=== PATIENT | female | born 1965 | race Caucasian/White ===

== ENCOUNTER 2017-12-11 08:27 | Observation (INO) | payer OTHER ==
[2017-12-11] MEDS ORDERED: Ondansetron INJ* 2 MG/ML VIAL IV ONE (08:41)
[2017-12-11] MEDS ORDERED: Morphine INJ* 4 MG/ML 1 ML CARPUJECT IV ONE (08:41)
[2017-12-11] MEDS ORDERED: NS 0.9% 1000 ML* 1,000 ML IV ONE (08:41)
[2017-12-11] MEDS ORDERED: Morphine INJ* 4 MG/ML 1 ML SYRINGE (NEW SYRINGE VERSION) ONE (08:46)
[2017-12-11 08:51] LABS: Hematocrit 44 % (35-47); Hemoglobin 14.6 g/dl (12.0-16.0); Mean Corpuscular HGB Conc 33 g/dl (31-36); Mean Corpuscular Hemoglobin 30 pg (27-31); Mean Corpuscular Volume 91 fL (80-97); Mean Platelet Volume 8 um3 (7.4-10.4); Platelet Count 343 10^3/ul (150-450); Red Blood Count 4.82 10^6/ul (4.0-5.4); Red Cell Distribution Width 14 % (10.5-15); White Blood Count 10.9 10^3/ul (3.5-10.8)
--- NOTE | 2017-12-11 09:14 | RAD ---
HISTORY: Chest pain COMPARISONS: December 14, 2014 VIEWS: 4: Frontal dual-energy and lateral views of the chest. FINDINGS: CARDIOMEDIASTINAL SILHOUETTE: The cardiomediastinal silhouette is normal. TERESA: The teresa are normal. PLEURA: The costophrenic angles are sharp. No pleural abnormalities are noted. LUNG PARENCHYMA: The lungs are clear. ABDOMEN: The upper abdomen is clear. There is no subphrenic gas. BONES AND SOFT TISSUES: No bone or soft tissue abnormalities are noted. OTHER: None. IMPRESSION: NO ACTIVE CARDIOPULMONARY DISEASE.
[2017-12-11 09:54] LABS: Monocytes % 8 % (0-13)
[2017-12-11] MEDS ORDERED: Aspirin Low Dose CHEW TAB* 81 MG PO ONE (13:02)
[2017-12-11] MEDS ORDERED: Ondansetron INJ* 2 MG/ML VIAL IV PRN (14:37)
[2017-12-11] MEDS ORDERED: Acetaminophen TAB* 325 MG PO PRN (14:37)
[2017-12-11] MEDS ORDERED: Morphine INJ* 2 MG/ML 1 ML CARPUJECT IV PRN (14:38)
[2017-12-11] MEDS ORDERED: NS 0.9% 1000 ML* 1,000 ML IV SCH (14:45)
[2017-12-11] MEDS ORDERED: Enoxaparin(*) 40 MG/0.4 ML SYR SUBCUT SCH (15:00)
[2017-12-11 15:56] LABS: Urine Appearance Clear; Urine Blood Negative (Negative); Urine Color Yellow; Urine Ketones Negative (Negative); Urine Protein Negative (Negative); Urine Specific Gravity 1.018 (1.010-1.030); Urine Urobilinogen Negative (Negative)
--- NOTE | 2017-12-11 18:56 | ED ---
Zhao Figueroa Angela, scribed for Dwayne Foster MD on 12/11/17 at 0831 . HPI Chest Pain - HPI Summary HPI Summary: This pt is a 52 y/o female presenting to [facility] via EMS c/o mid sternal chest pain since 05:00 today. Pt reports she usually gets chest pain due to achalasia , but this current pain is different. Pt states her pain is in the middle and where the esopagus is located. She additionally notes nausea and vomiting. Pt rates her pain 4/10 in severity. Pt notes this pain feels more like when she had gallstones. She has not taken any pain medications. The last time pt had an episode of achalasia chest pain was 2 weeks ago, and notes "not this bad." She states her typical chest pain resolves on its own. PMHx: heart murmur. PSHx: cholecystectomy. Pt has had surgeries for achalasia, the last one was 12-13 years ago. - History of Current Complaint Hx Obtained From: Patient Onset/Duration: Started Hours Ago, Still Present Timing: Lasting Hours Current Severity: Moderate Pain Intensity: 4 Pain Scale Used: 0-10 Numeric Chest Pain Location: Mid Sternal Chest Pain Radiates: No Alleviating Factor(s): Nothing Associated Signs and Symptoms: Positive: Chest Pain, Nausea, Other: - vomiting - Additional Pertinent History Primary Care Physician: BRAULIO - Allergy/Home Medications Allergies/Adverse Reactions: Allergies Allergy/AdvReac Type Severity Reaction Status Date / Time erythromycin base Allergy Hives Verified 12/11/17 14:42 Sulfa (Sulfonamide Allergy Hives Verified 12/11/17 14:42 Antibiotics) PMH/Surg Hx/FS Hx/Imm Hx Endocrine/Hematology History: Denies: Hx Diabetes Cardiovascular History: Denies: Hx Congestive Heart Failure, Hx Hypertension, Hx Pacemaker/ICD Respiratory History: Reports: Hx Asthma GI History: Reports: Other GI Disorders - Achalasia and esophagitis History: Denies: Hx Renal Disease Sensory History: Denies: Hx Hearing Aid Psychiatric History: Denies: Hx Panic Disorder - Cancer History Hx Chemotherapy: No Hx Radiation Therapy: No - Surgical History Surgery Procedure, Year, and Place: tonsils,2 esophageal myeotomies, cholecystectomy Hx Anesthesia Reactions: No - Immunization History Date of Tetanus Vaccine: Unk Date of Influenza Vaccine: None - Family History Family History: Father: floyd's esophagus. - Social History Alcohol Use: None Substance Use Type: Reports: None Hx Tobacco Use: No Smoking Status (MU): Never Smoked Tobacco Review of Systems Negative: Fever, Chills Positive: Chest Pain Positive: Vomiting, Nausea Skin: Negative Neurological: Negative All Other Systems Reviewed And Are Negative: Yes Physical Exam - Summary Physical Exam Summary: VITAL SIGNS: Reviewed. GENERAL: Patient is a well-developed and nourished female who is lying comfortable in the stretcher. Patient is not in any acute respiratory distress. HEAD AND FACE: No signs of trauma. No ecchymosis, hematomas or skull depressions. No sinus tenderness. EYES: PERRLA, EOMI x 2, No injected conjunctiva, no nystagmus. EARS: Hearing grossly intact. Ear canals and tympanic membranes are within normal limits. MOUTH: Oropharynx within normal limits. NECK: Supple, trachea is midline, no adenopathy, no JVD, no carotid bruit, no c- spine tenderness, neck with full ROM. CHEST: Symmetric. Reproducible chest pain in the retrosternum and epigastric areas. LUNGS: Clear to auscultation bilaterally. No wheezing or crackles. CVS: Regular rate and rhythm, S1 and S2 present, no murmurs or gallops appreciated. ABDOMEN: Soft, non-tender. No signs of distention. No rebound no guarding, and no masses palpated. Bowel sounds are normal. EXTREMITIES: FROM in all major joints, no edema, no cyanosis or clubbing. NEURO: Alert and oriented x 3. No acute neurological deficits. Speech is normal and follows commands. SKIN: Dry and warm Triage Information Reviewed: Yes Vital Signs On Initial Exam: Initial Vitals Temp Pulse Resp BP Pulse Ox 97.4 F 69 17 134/57 100 12/11/17 08:28 12/11/17 08:28 12/11/17 08:28 12/11/17 08:28 12/11/17 08:28 Vital Signs Reviewed: Yes Diagnostics - Vital Signs Vital Signs Temp Pulse Resp BP Pulse Ox 12/11/17 14:30 76 18 108/56 98 12/11/17 14:00 70 17 110/60 97 12/11/17 13:30 79 18 103/58 99 12/11/17 13:00 71 17 105/76 98 02/12/18 12:30 74 17 100/59 98 12/11/17 12:00 67 12 92/35 98 12/11/17 11:30 66 15 96/41 99 12/11/17 11:00 68 12 93/61 98 12/11/17 10:30 71 17 95/54 98 12/11/17 10:00 59 12 100/55 96 12/11/17 09:30 66 11 118/65 96 12/11/17 09:09 72 19 116/66 94 12/11/17 08:52 16 12/11/17 08:43 100 12/11/17 08:34 69 22 100 12/11/17 08:28 97.4 F 69 17 134/57 100 - Laboratory Lab Results: Lab Results 12/11/17 12/11/17 12/11/17 Range/Units 08:43 08:43 08:43 WBC (3.5-10.8) 10^3/ul RBC (4.0-5.4) 10^6/ul Hgb (12.0-16.0) g/dl Hct (35-47) % MCV (80-97) fL MCH (27-31) pg MCHC (31-36) g/dl RDW (10.5-15) % Plt Count (150-450) 10^3/ul MPV (7.4-10.4) um3 Neut % (Auto) Lymph % (Auto) Dent % (Auto) Eos % (Auto) Baso % (Auto) Absolute Neuts (auto) Absolute Lymphs (auto) Absolute Monos (auto) Absolute Eos (auto) Absolute Basos (auto) Absolute Nucleated RBC Neutrophils % (38-83) % Lymphocytes % (25-47) % Monocytes % (0-13) % Eosinophils % (0-6) % Basophils % (0-2) % Nucleated RBC % Abs Neuts (Manual) (1.5-7.7) 10^3/ul Abs Monocytes (Manual) (0-0.8) 10^3/ul Absolute Eos (Manual) (0-0.6) 10^3/ul Abs Basophils (Manual) (0-0.2) 10^3/ul Normal RBC Morphology (Normal) Hem Pathologist Commnt APTT 26.9 (26.0-36.3) seconds Sodium 137 (133-145) mmol/L Potassium 4.3 (3.5-5.0) mmol/L Chloride 103 (101-111) mmol/L Carbon Dioxide 26 (22-32) mmol/L Anion Gap 8 (2-11) mmol/L BUN 21 (6-24) mg/dL Creatinine 1.01 H (0.51-0.95) mg/dL Est GFR ( Amer) 74.6 (>60) Est GFR (Non-Af Amer) 58.0 (>60) BUN/Creatinine Ratio 20.8 H (8-20) Glucose 142 H (70-100) mg/dL Lactic Acid (0.5-2.0) mmol/L Calcium 9.8 (8.6-10.3) mg/dL Magnesium 2.0 (1.9-2.7) mg/dL Total Bilirubin 0.40 (0.2-1.0) mg/dL AST 19 (13-39) U/L ALT 16 (7-52) U/L Alkaline Phosphatase 52 (34-104) U/L Total Creatine Kinase 142 (10-223) U/L CK-MB (CK-2) 3.2 (0.6-6.3) ng/mL Troponin I 0.01 (<0.04) ng/mL B-Natriuretic Peptide 38 ( - 100) pg/mL Total Protein 7.4 (6.4-8.9) g/dL Albumin 4.2 (3.2-5.2) g/dL Globulin 3.2 (2-4) g/dL Albumin/Globulin Ratio 1.3 (1-3) TSH 1.59 (0.34-5.60) mcIU/mL Urine Color Urine Appearance Urine pH (5-9) Ur Specific Underwood (1.010-1.030) Urine Protein (Negative) Urine Ketones (Negative) Urine Blood (Negative) Urine Nitrate (Negative) Urine Bilirubin (Negative) Urine Urobilinogen (Negative) Ur Leukocyte Esterase (Negative) Urine Glucose (Negative) Urine Ascorbic Acid (Negative) 12/11/17 12/11/17 12/11/17 Range/Units 08:43 08:43 11:33 WBC 10.9 H (3.5-10.8) 10^3/ul RBC 4.82 (4.0-5.4) 10^6/ul Hgb 14.6 (12.0-16.0) g/dl Hct 44 (35-47) % MCV 91 (80-97) fL MCH 30 (27-31) pg MCHC 33 (31-36) g/dl RDW 14 (10.5-15) % Plt Count 343 (150-450) 10^3/ul MPV 8 (7.4-10.4) um3 Neut % (Auto) Not Reportable Lymph % (Auto) Not Reportable Dent % (Auto) Not Reportable Eos % (Auto) Not Reportable Baso % (Auto) Not Reportable Absolute Neuts (auto) Not Reportable Absolute Lymphs (auto) Not Reportable Absolute Monos (auto) Not Reportable Absolute Eos (auto) Not Reportable Absolute Basos (auto) Not Reportable Absolute Nucleated RBC Not Reportable Neutrophils % 81 (38-83) % Lymphocytes % 11 L (25-47) % Monocytes % 8 (0-13) % Eosinophils % 0 (0-6) % Basophils % 0 (0-2) % Nucleated RBC % Not Reportable Abs Neuts (Manual) 8.8 H (1.5-7.7) 10^3/ul Abs Monocytes (Manual) 0.9 H (0-0.8) 10^3/ul Absolute Eos (Manual) 0 (0-0.6) 10^3/ul Abs Basophils (Manual) 0 (0-0.2) 10^3/ul Normal RBC Morphology Normal (Normal) Hem Pathologist Commnt APTT (26.0-36.3) seconds Sodium (133-145) mmol/L Potassium (3.5-5.0) mmol/L Chloride (101-111) mmol/L Carbon Dioxide (22-32) mmol/L Anion Gap (2-11) mmol/L BUN (6-24) mg/dL Creatinine (0.51-0.95) mg/dL Est GFR ( Amer) (>60) Est GFR (Non-Af Amer) (>60) BUN/Creatinine Ratio (8-20) Glucose (70-100) mg/dL Lactic Acid 2.7 H* (0.5-2.0) mmol/L Calcium (8.6-10.3) mg/dL Magnesium (1.9-2.7) mg/dL Total Bilirubin (0.2-1.0) mg/dL AST (13-39) U/L ALT (7-52) U/L Alkaline Phosphatase (34-104) U/L Total Creatine Kinase (10-223) U/L CK-MB (CK-2) (0.6-6.3) ng/mL Troponin I 0.07 H* (<0.04) ng/mL B-Natriuretic Peptide ( - 100) pg/mL Total Protein (6.4-8.9) g/dL Albumin (3.2-5.2) g/dL Globulin (2-4) g/dL Albumin/Globulin Ratio (1-3) TSH (0.34-5.60) mcIU/mL Urine Color Urine Appearance Urine pH (5-9) Ur Specific Underwood (1.010-1.030) Urine Protein (Negative) Urine Ketones (Negative) Urine Blood (Negative) Urine Nitrate (Negative) Urine Bilirubin (Negative) Urine Urobilinogen (Negative) Ur Leukocyte Esterase (Negative) Urine Glucose (Negative) Urine Ascorbic Acid (Negative) 12/11/17 12/11/17 Range/Units 13:11 13:30 WBC (3.5-10.8) 10^3/ul RBC (4.0-5.4) 10^6/ul Hgb (12.0-16.0) g/dl Hct (35-47) % MCV (80-97) fL MCH (27-31) pg MCHC (31-36) g/dl RDW (10.5-15) % Plt Count (150-450) 10^3/ul MPV (7.4-10.4) um3 Neut % (Auto) Lymph % (Auto) Dent % (Auto) Eos % (Auto) Baso % (Auto) Absolute Neuts (auto) Absolute Lymphs (auto) Absolute Monos (auto) Absolute Eos (auto) Absolute Basos (auto) Absolute Nucleated RBC Neutrophils % (38-83) % Lymphocytes % (25-47) % Monocytes % (0-13) % Eosinophils % (0-6) % Basophils % (0-2) % Nucleated RBC % Abs Neuts (Manual) (1.5-7.7) 10^3/ul Abs Monocytes (Manual) (0-0.8) 10^3/ul Absolute Eos (Manual) (0-0.6) 10^3/ul Abs Basophils (Manual) (0-0.2) 10^3/ul Normal RBC Morphology (Normal) Hem Pathologist Commnt APTT (26.0-36.3) seconds Sodium (133-145) mmol/L Potassium (3.5-5.0) mmol/L Chloride (101-111) mmol/L Carbon Dioxide (22-32) mmol/L Anion Gap (2-11) mmol/L BUN (6-24) mg/dL Creatinine (0.51-0.95) mg/dL Est GFR ( Amer) (>60) Est GFR (Non-Af Amer) (>60) BUN/Creatinine Ratio (8-20) Glucose (70-100) mg/dL Lactic Acid (0.5-2.0) mmol/L Calcium (8.6-10.3) mg/dL Magnesium (1.9-2.7) mg/dL Total Bilirubin (0.2-1.0) mg/dL AST (13-39) U/L ALT (7-52) U/L Alkaline Phosphatase (34-104) U/L Total Creatine Kinase (10-223) U/L CK-MB (CK-2) (0.6-6.3) ng/mL Troponin I 0.09 H* (<0.04) ng/mL B-Natriuretic Peptide ( - 100) pg/mL Total Protein (6.4-8.9) g/dL Albumin (3.2-5.2) g/dL Globulin (2-4) g/dL Albumin/Globulin Ratio (1-3) TSH (0.34-5.60) mcIU/mL Urine Color Yellow Urine Appearance Clear Urine pH 7.0 (5-9) Ur Specific Underwood 1.018 (1.010-1.030) Urine Protein Negative (Negative) Urine Ketones Negative (Negative) Urine Blood Negative (Negative) Urine Nitrate Negative (Negative) Urine Bilirubin Negative (Negative) Urine Urobilinogen Negative (Negative) Ur Leukocyte Esterase Negative (Negative) Urine Glucose Negative (Negative) Urine Ascorbic Acid * H (Negative) Result Diagrams: 12/11/17 08:43 12/11/17 08:43 Lab Statement: Any lab studies that have been ordered have been reviewed, and results considered in the medical decision making process. - Radiology Chest XR Xray Interpretation: No Acute Changes - IMPRESSION: No active cardiopulmonary disease. Dr. Foster has reviewed this radiology report. Radiology Interpretation Completed By: Radiologist - EKG 08:29 Cardiac Rate: NL EKG Rhythm: Sinus Rhythm - at 69 bpm EKG Interpretation: No ST elevation Chest Pain Course/Dx - Course Assessment/Plan: This pt is a 52 y/o female presenting to [facility] via EMS c/o mid sternal chest pain since 05:00 today. Pt reports she usually gets chest pain due to achalasia, but this current pain is different. Pt states her pain is in the middle and where the esopagus is located. She additionally notes nausea and vomiting. Pt rates her pain 4/10 in severity. Pt notes this pain feels more like when she had gallstones. She has not taken any pain medications. The last time pt had an episode of achalasia chest pain was 2 weeks ago, and notes "not this bad." She states her typical chest pain resolves on its own. PMHx: heart murmur. PSHx: cholecystectomy. Pt has had surgeries for achalasia, the last one was 12-13 years ago. Test results without significant abnormalities except for creatinine of 1.01, glucose 142, lactic acid is 2.7, troponin 1 is 0.01 and 4 hours later, second troponin increased and is 0.07. The pt was given aspirin and at this point I discussed the case with Dr. Monk, hospitalist, who accepted the pt for admission. Pt is hemodynamically stable, alert and oriented x3. - Chest Pain Differential Diagnosis/HQI/PQRI: Acute TX, ACS, Angina, CHF, Chest Wall, GI Disease, Lower Respiratory Infection - Diagnoses Provider Diagnoses: Chest pain, rule out ACS - Provider Notifications Discussed Care Of Patient With: Canelo Monk Time Discussed With Above Provider: 12:55 Instructed by Provider To: Other - I discussed pt care with Dr. Monk, hospitalist, who has agreed to admit the pt. Discharge - Discharge Plan Condition: Stable Disposition: ADMITTED TO [facility] The documentation as recorded by the Zhao bryant Angela accurately reflects the service I personally performed and the decisions made by , Dwayne Foster MD.
--- NOTE | 2017-12-11 20:33 | HP ---
CC: Diann Ayoub NP * ADMISSION HISTORY AND PHYSICAL: DATE OF ADMISSION: 12/11/17 PRIMARY CARE PROVIDER: Diann Ayoub NP HEALTHCARE PROXY: . CODE STATUS: Full. SOURCE OF INFORMATION: History obtained from interview with patient, review of past medical records. RELIABILITY: Good. CHIEF COMPLAINT: Chest pain, nausea, vomiting. HISTORY OF PRESENT ILLNESS: This is a 52-year-old female with past medical history including severe achalasia, status post Heller myotomy twice, last 2010 , and numerous balloon dilatations, last before 2010, whose last hospital stay was in March of 2016 after presenting with chest pain thought secondary to achalasia, found with increasing troponins at that time peaked at 0.13, underwent a stress echo with no evidence of ischemia, has been well. Does have chest pain approximately 1 time a week, not related to exertion, consistent with her achalasia woke up this morning at 5 a.m. with nausea, vomiting, and worsening of chest pain that felt "different than normal" and that was associated with emesis and the pain also felt more severe. She continued to be nauseous and the more she vomited, the worse her pain became until she ultimately presented to the emergency room, received pain medications and the pain abated. The patient noted diaphoresis in the sitting of the chest pain, nausea, and vomiting, but denied any shortness of breath, lightheadedness, loss of consciousness. She similarly denied any recent cough, fevers, chills, diarrhea, constipation, but did note that her 6-year-old son has been home for several days with a fever. She described the pain as sharp, midsternal radiating to her back similar to previous episodes. The patient's exercise tolerance is unlimited. She attends aerobic exercise class twice per week that last for approximately 45 minutes without associated chest pain. She is on no medications and has no changes to her medications. In the emergency room, she was found with an elevated troponin and the hospitalist service was consulted for admission. After last admission, the patient was recommended to seek additional care at a tertiary or quaternary care center, potentially one with an achalasia center for further evaluation. She had previously been recommended for an esophagectomy, which she declined. The patient has not been to one of these centers secondary to insurance reasons and difficulty with referral. PAST MEDICAL HISTORY: Includes achalasia, status post Heller myotomy twice, last in 2010; numerous balloon dilatations; asthma; cholecystectomy. MEDICATIONS: None. ALLERGIES: SULFA and ERYTHROMYCIN. FAMILY HISTORY: Father had Jeffrey's esophagus. No history of CVAs, CAD. SOCIAL HISTORY: No alcohol, tobacco or illicits. REVIEW OF SYSTEMS: As per HPI including chest pain, nausea, vomiting, diaphoresis, sick contact. Otherwise, all other systems negative. PHYSICAL EXAMINATION GENERAL: Sitting up in bed, interactive, pleasant, no apparent distress. VITAL SIGNS: When seen by this author, 110/60, heart rate 77, respiratory rate 17, 98% on room air. T-max in the emergency room is 97.4. HEENT: Oropharynx is clear. She has moist mucous membranes. Sclerae anicteric. NECK: Non-elevated JVD. LUNGS: Clear to auscultation. She has no tenderness to palpation over her chest wall. HEART: Regular rate and rhythm. No murmurs, rubs or gallops. ABDOMEN: Soft, nontender, nondistended. EXTREMITIES: Warm, well perfused without clubbing, cyanosis or edema. NEUROLOGIC: She is alert and oriented x3. Cranial nerves II through XII are intact. She has no apparent anxiety, agitation or depression. PERTINENT LABORATORY DATA: Include lactic acid 2.7 in the setting of nausea and vomiting. Troponin I 0.01 on presentation, now 0.09. BNP 21, creatinine 1.0. White blood cell count 10.9. EKG: Normal sinus rhythm, ventricular rate of 88, normal limit axis, normal limit interval. No ST or T-wave changes. Chest x-ray: Impression: No active cardiopulmonary disease. ASSESSMENT AND PLAN: This is a 52-year-old female with past medical history of achalasia and asthma presenting with chest pain associated with nausea, vomiting and now elevated troponin similar to an episode in 2016. 1. Chest pain: The patient does note that this pain is different than chest pain she still is noted to be low risk. We will check lipids in the morning. Continue to trend troponins, place her on telemetry and monitor. Give the patient an aspirin and continue to follow troponins and if troponins are elevated, consider heparin. If troponins trend down, we will not pursue a stress test at this time. I have ordered a transthoracic echocardiogram to be followed tomorrow. 2. Sick contacts, son with a flu: These symptoms are different than her previous associated with nausea, vomiting. Her son had a fever in the setting of flu endemic and her different presentation of chest pain, we will check the patient for influenza as well. 3. DVT prophylaxis: Lovenox. [id number]/[facility] #: [id number] LOLY
[2017-12-12 05:53] LABS: EGFR Non-African American 64.6 (>60)
[2017-12-12] MEDS ORDERED: Aspirin EC Low Dose* 81 MG TAB.EC PO SCH (09:00)
[2017-12-12 11:24] VITALS: BP 103/57
--- NOTE | 2017-12-12 11:39 | ECHO ---
Patient: OTTO MORA [facility] Rec#: [id number] : 1965 Date: 12/12/2017 Age: 52y Height: 152.4 cm / 60.0 in Weight: 79.38 kg / 175.0 lbs Sex: F BSA: 1.76 Room#: 443 Admit Date#: 12/11/2017 Type: Inpatient Referring: Canelo Monk MD Reading: Joe Pineda MD Instructor Dramatic Arts: May Grant RDCS,RDMS CC: Kate Saravia MD Transthoracic Echocardiogram Indication: CP BP: 101/54 HR: 64 Rhythm: NSR Findings History: Murmur, asthma Technical Comments: The study quality is good. Left Ventricle: The left ventricular chamber size is normal. There is no left ventricular hypertrophy. Global left ventricular wall motion and contractility are within normal limits. There is normal left ventricular systolic function. The estimated ejection fraction is 55-60%. Normal left ventricular diastolic filling is observed. Left Atrium: The left atrial chamber size is normal. Right Ventricle: The right ventricular chamber size and systolic function are within normal limits. Right Atrium: The right atrial cavity size is normal. Aortic Valve: The aortic valve is trileaflet. The aortic valve leaflets are mildly thickened. Systolic excursion of the aortic valve is normal. There is no evidence of aortic regurgitation. There is no evidence of aortic stenosis. Mitral Valve: The mitral valve leaflets are mildly thickened. Mitral valve leaflet mobility appears normal. There is a trace of mitral regurgitation. There is no evidence of mitral stenosis. Tricuspid Valve: The tricuspid valve leaflets are normal. There is trace tricuspid regurgitation. No pulmonary hypertension is noted. Pulmonic Valve: The pulmonic valve appears normal. There is no evidence of pulmonic regurgitation. Pericardium: There is no significant pericardial effusion. Aorta: The aortic root appears normal. There is no dilatation of the aortic arch. Pulmonary Artery: The main pulmonary artery appears normal. Venous: The inferior vena cava is dilated. There is less than 50% respiratory change in the inferior vena cava dimension. Conclusions There is normal left ventricular systolic function. The estimated ejection fraction is 55-60%. There is a trace of mitral regurgitation. There is trace tricuspid regurgitation. No pulmonary hypertension is noted. No reports of prior transthoracic echocardiograms offered for comparison. Measurements Name Value Normal Range RVIDd (AP) 2D 2.6 cm (0.9 - 2.6) RVDdMajor (2D) 2.7 cm (2.2 - 4.4) RAd ISD 4CH 4.5 cm (3.4 - 4.9) RA (A4C)W 3.1 cm (2.9 - 4.6) IVSd (2D) 0.9 cm (0.6 - 1) LVPWd (2D) 0.8 cm (0.6 - 1) LVIDd (2D) 4.7 cm (3.6 - 5.4) LVIDs (2D) 3.6 cm - LV FS (2D) 24 % (25 - 45) Aortic Annulus 1.8 cm (1.4 - 2.6) Ao root diameter (2D) 2.3 cm (2.1 - 3.5) Ascending Ao 2.2 cm (2.1 - 3.4) Aortic arch 2.4 cm (1.8 - 3.4) LA dimension (AP) 2D 3.4 cm (2.3 - 3.8) LAd ISD 4CH 5.4 cm (2.9 - 5.3) LA ISD 4CH W 4.5 cm (2.5 - 4.5) Name Value Normal Range LA ESV SP 4CH (A/L) 59.54 ml - LA ESV SP 2CH (A/L) 48.23 ml - LA ESV BP (A/L) 54.76 ml - LA ESV BP (A/L) index 31 ml/m2 - LA ESV SP 4CH (MOD) 55.12 ml - LA ESV SP 2CH (MOD) 45.67 ml - LV EDV SP 4CH (MOD) 72.65 ml - LV ESV SP 4CH (MOD) 31.17 ml - EF SP 4CH (MOD) 57.09 % - Name Value Normal Range MV E-wave Vmax 1 m/sec - MV deceleration time 193 msec - MV A-wave Vmax 0.7 m/sec - MV E:A ratio 4 ratio - P. vein S-wave Vmax 0.5 m/sec - P. vein D-wave Vmax 0.3 m/sec - P. vein S:D Vmax ratio 1.5 ratio - P. vein A-wave duration 114 msec - LV septal e' Vmax 0.11 m/sec - LV lateral e' Vmax 0.1 m/sec - LV E:e' septal ratio 9 ratio - LV E:e' lateral ratio 10 ratio - Name Value Normal Range AV Vmax 1.6 m/sec - AV VTI 33.5 cm - AV peak gradient 10 mmHg - AV mean gradient 5.9 mmHg - LVOT Vmax 1.1 m/sec - LVOT VTI 23.2 cm - LVOT peak gradient 5 mmHg - LVOT mean gradient 2.5 mmHg - MATEO Vmax 0.9 m/sec - Name Value Normal Range TR Vmax 1.8 m/sec - TR peak gradient 13 mmHg - RAP 3 mmHg - RVSP 16 mmHg - IVC diameter 2.5 cm - Name Value Normal Range PV Vmax 0.8 m/sec - PV peak gradient 2.6 mmHg -
--- NOTE | 2017-12-13 17:29 | DS ---
CC: Diann Ayoub NP. * DISCHARGE SUMMARY: DATE OF ADMISSION: 12/11/17. DATE OF DISCHARGE: 12/12/17. PRIMARY CARE PROVIDER: Diann Ayoub NP. PRIMARY DIAGNOSES: 1. Chest pain. 2. Achalasia. SECONDARY DIAGNOSIS: Include asthma, mild, intermittent. MEDICATIONS ON DISCHARGE: Include aspirin 81 mg daily, new addition. PERTINENT LABORATORY DATA: Troponin-I peaked at 0.11. Total cholesterol 167, LDL 102, HDL 43. PERTINENT IMAGING: Transthoracic echocardiogram, impression: Normal left ventricular systolic function. EF 55% to 60%, trace MR, trace TR, no pulmonary hypertension. No comparison. HISTORY OF PRESENT ILLNESS AND HOSPITAL COURSE: This is a 52-year-old female with past medical history as outlined in the history of present illness on the day of admission including achalasia with multiple interventions and a previous presentation in March 2016 with chest pain, found with an elevated troponin at 0.13, underwent a stress test at that time and that was read to be low risk. This time presenting similarly with chest pain, nausea, vomiting, again found to have an elevated troponin, again peaked at 0.11. She had no EKG evidence suspicious of cardiac ischemia and her echocardiogram did not indicate any damage. She was discharged the next day without any chest pain. Her nausea and vomiting had completely abated. DISCHARGE INSTRUCTIONS: At followup, please: 1. Discuss utility of repeat stress test. I did not feel it was clinically warranted at this time. 2. Continue to discuss referral to [facility]. Reasons to return to the hospital included, but are not limited to, recurrent or worsening of symptoms, chest pain, shortness of breath, nausea, vomiting, lightheadedness, loss of consciousness, bleeding from any source, inability to obtain or tolerate medications were discussed at length with the patient. She acknowledged understanding. [id number]/[facility] #: [id number] LOLY
== END 2017-12-12 13:45 | disposition home or self-care (01) ==
LOC: ED 08:27 → MEDTELE 14:38
PROVIDERS: ADMIT Internal Medicine; ATTEND Internal Medicine
DX: R07.9 Chest pain, unspecified (principal); R11.2 Nausea with vomiting, unspecified; K22.0 Achalasia of cardia; Z87.09 Personal history of other diseases of the respiratory system; Z90.49 Acquired absence of other specified parts of digestive tract; Z98.890 Other specified postprocedural states
CPT/HCPCS: 36415; 71046; 80048; 80053; 80061; 81003; 82550; 82553; 83605; 83735; 83880; 84443; 84484; 85025; 85060; 85730; 87502; 93005; 93306; 96374; 96375; 99284; A9270-GY; G0378; J2270; J2405

== ENCOUNTER 2018-04-13 11:15 | Emergency (ER) | payer OTHER ==
[2018-04-13] MEDS ORDERED: Lidocaine 2% VISCOUS* 15 ML UDC PO ONE (11:39)
[2018-04-13] MEDS ORDERED: Al Hydrox/Mg Hydrox/Simet LIQ* 30 ML UDC PO ONE (11:39)
[2018-04-13] MEDS ORDERED: Famotidine TAB* 20 MG PO ONE (11:39)
[2018-04-13] MEDS ORDERED: HYDROmorphone INJ* 2 MG/ML CARPUJECT SYRINGE IV SLOW PU ONE (11:39)
--- NOTE | 2018-04-13 13:21 | ED ---
Melvin Figueroa Stephanie, scribed for Natalio Goodman MD on 04/13/18 at 1145 . Abdominal Pain/Female - HPI Summary HPI Summary: The pt is a 52 y/o F presenting to the ED with c/o abd pain that began at 08:30 today. Symptoms include vomiting (for 2 hours). She describes her pain as being over her xiphoid. She reports hx of achalasia. She is followed by GI specialist at [facility]. - History of Current Complaint Chief Complaint: EDAbdPain Stated Complaint: ABD PAIN,DIFF BREATHING Time Seen by Provider: 04/13/18 11:25 Hx Obtained From: Patient ?: No Onset/Duration: Gradual Onset, Lasting Hours, Still Present Timing: Constant Severity Currently: Moderate Pain Intensity: 6 Pain Scale Used: 0-10 Numeric Location: Diffuse Radiates: No Aggravating Factor(s): Food Alleviating Factor(s): Nothing Associated Signs and Symptoms: Positive: Nausea, Vomiting Allergies/Adverse Reactions: Allergies Allergy/AdvReac Type Severity Reaction Status Date / Time erythromycin base Allergy Hives Verified 04/13/18 11:22 Sulfa (Sulfonamide Allergy Hives Verified 04/13/18 11:22 Antibiotics) Home Medications: Home Medications NK [No Home Medications Reported] 04/13/18 [History Confirmed 04/13/18] PMH/Surg Hx/FS Hx/Imm Hx Endocrine/Hematology History: Denies: Hx Diabetes Cardiovascular History: Denies: Hx Congestive Heart Failure, Hx Hypertension, Hx Pacemaker/ICD Respiratory History: Reports: Hx Asthma GI History: Reports: Other GI Disorders - Achalasia and esophagitis History: Denies: Hx Renal Disease Sensory History: Denies: Hx Contacts or Glasses, Hx Hearing Aid Opthamlomology History: Denies: Hx Contacts or Glasses Psychiatric History: Denies: Hx Panic Disorder - Cancer History Hx Chemotherapy: No Hx Radiation Therapy: No - Surgical History Surgery Procedure, Year, and Place: tonsils,2 esophageal myeotomies, cholecystectomy Hx Anesthesia Reactions: No - Immunization History Date of Tetanus Vaccine: Unk Date of Influenza Vaccine: None Infectious Disease History: No Infectious Disease History: Denies: Traveled Outside the [place] in Last 30 Days - Family History Known Family History: Negative: Renal Disease Family History: Father: floyd's esophagus. - Social History Occupation: Unemployed Lives: With Family Alcohol Use: None Hx Substance Use: No Substance Use Type: Reports: None Hx Tobacco Use: No Smoking Status (MU): Never Smoked Tobacco Have You Smoked in the Last Year: No Review of Systems Negative: Fever Positive: Abdominal Pain, Vomiting, Nausea Negative: Slurred Speech All Other Systems Reviewed And Are Negative: Yes Physical Exam - Summary Physical Exam Summary: Appearance: Well appearing, no pain distress, tearful and upset, no palpable pain Skin: warm, dry, reflects adequate perfusion Head/face: normal Eyes: EOMI, TALIA ENT: normal Neck: supple, non-tender Respiratory: CTA, breath sounds present Cardiovascular: RRR, pulses symmetrical Abdomen: non-tender, soft Bowel Sounds: present Musculoskeletal: normal, strength/ROM intact Neuro: normal, sensory motor intact, A&Ox3 Triage Information Reviewed: Yes Vital Signs On Initial Exam: Initial Vitals Temp Pulse Resp BP Pulse Ox 98 F 71 22 144/64 100 04/13/18 11:22 04/13/18 11:22 04/13/18 11:22 04/13/18 11:22 04/13/18 11:22 Vital Signs Reviewed: Yes Diagnostics - Vital Signs Vital Signs Temp Pulse Resp BP Pulse Ox 04/13/18 11:22 98 F 71 22 144/64 100 - Laboratory Lab Statement: Any lab studies that have been ordered have been reviewed, and results considered in the medical decision making process. - EKG 11:36 Cardiac Rate: NL EKG Rhythm: Sinus Rhythm - 67 BPM EKG Interpretation: nml axis, intervals, and ST segments Re-Evaluation - Re-Evaluation First Eval Re-Evaluation Time: 12:38 Change: Improved - The pt states she feels better at this time. Abdominal Pain Fem Course/Dx - Course Course Of Treatment: Patient with a history of achalasia with recurring subxiphoid discomfort. She was given GI medications along with a dose of opiate pain medication with relief. She states that they have discussed possible operative intervention but that she was not quite ready for. She will follow-up with her GI doctor at [facility]. Discharged in good condition. normal. - Diagnoses Differential Diagnosis: Positive: Other - Fluid bolus, GERD/gastritis, chest wall pain, cardiac chest pain Provider Diagnoses: Achalasia, Chronic chest pain Discharge - Sign-Out/Discharge Documenting (check all that apply): Discharge/Admit/Transfer - Discharge - Discharge Plan Condition: Stable Disposition: HOME Referrals: Kate Saravia MD [Primary Care Provider] - Additional Instructions: Follow-up with a call today to your GI doctor Dr. Norris. Return if worse, new symptoms or other concerns as discussed. - Billing Disposition and Condition Condition: STABLE Disposition: Home The documentation as recorded by the Melvin bryant Stephanie accurately reflects the service I personally performed and the decisions made by me, Natalio Goodman MD.
[2018-04-13 14:06] VITALS: BP 106/68
== END 2018-04-13 14:04 | disposition home or self-care (01) ==
LOC: ED 11:15
DX: K22.0 Achalasia of cardia (principal); R07.9 Chest pain, unspecified; G89.29 Other chronic pain; Z90.49 Acquired absence of other specified parts of digestive tract; Z83.79 Family history of other diseases of the digestive system; Z88.3 Allergy status to other anti-infective agents; Z88.0 Allergy status to penicillin
CPT/HCPCS: 93005; 96374; 99282; A9270-GY; J1170

== ENCOUNTER 2024-07-31 03:07 | Observation (INO) ==
[2024-07-31 03:49] LABS: ABS Basophils 0.1 10^3/uL (0.0-0.1); ABS Eosinophils 0.1 10^3/uL (0.0-0.5); ABS Lymphocytes 1.3 10^3/uL (1.0-4.8); ABS Monocytes 0.6 10^3/uL (0.0-0.9); ABS Neutrophils 12.1 10^3/uL (1.5-7.6); ABS Nucleated RBC 0.01 10^3/ul; Eosinophil % 0.4 %; Hematocrit 40.5 % (35-45); Hemoglobin 13.6 g/dL (11.5-14.3); Lymphocyte % 9.4 %; Mean Corpuscular Hemoglobin 31.1 pg (27-33); Mean Corpuscular Hgb Conc 33.7 g/dL (31-36); Mean Platelet Volume 8.8 fL (7.5-11.2); Nucleated Red Blood Cells % 0.1 %/100WBC (0.0-0.8); Platelet Count 281 10^3/uL (150-450); Red Blood Count 4.39 10^6/uL (3.63-4.92); Red Cell Distribution Width 13.4 % (12-17); White Blood Count 14.2 10^3/uL (3.8-11.8)
[2024-07-31] MEDS ORDERED: Morphine 2 MG/ML SYRINGE IV PRN (03:51)
[2024-07-31 04:34] LABS: Albumin 4.1 g/dL (3.2-5.2); Albumin/Globulin Ratio 1.4 (1-3); Creatinine, Serum 0.94 mg/dL (0.51-0.95); Globulin 2.9 g/dL (2-4); Total Bilirubin 0.3 mg/dL (0.2-1.0); eGFR CKD-EPI 70.8 (>60)
[2024-07-31 05:06] LABS: High Sensitivity Troponin 1 Hr 93 pg/mL (<15)
[2024-07-31 06:00] LABS: High Sensitivity Troponin 3 Hr 123 pg/mL (<15)
[2024-07-31] MEDS ORDERED: Sulfur Hexaflouride MICROSPHR 25 MG VIAL IV PRN (06:44)
[2024-07-31] MEDS: Enoxaparin 100 MG/ML SYR SUBCUT SCH (06:51)
[2024-07-31 07:11] LABS: HDL Cholesterol 50.1 mg/dL
[2024-07-31] MEDS: Sulfur Hexaflouride MICROSPHR 25 MG VIAL IV PRN (09:00)
[2024-07-31 10:22] LABS: High Sensitivity Troponin 1 Hr 184 pg/mL (<15)
[2024-08-01 09:53] VITALS: BP 102/73
== END 2024-08-01 12:14 | disposition home or self-care (01) ==
LOC: EDHOLD 03:07 → ED 03:07 → MEDTELE 11:11
PROVIDERS: ADMIT Internal Medicine; ATTEND Hospitalist